=== PATIENT | male | born 1945 | race Caucasian/White ===

== ENCOUNTER → 2019-06-03 | Outpatient (CLI) | payer MEDICARE ==
[~2019-06-03] MED LIST: Atenolol; CHOL200040; CLOBETASOL PROPIONATE 0.05%; Dayquil; FLUOCINOLONE ACETONIDE; GLUC1CAP48; KRIL500C; MULT1CAP19; OMEG10007; Pradaxa; UREA 40%
== END | disposition home or self-care (01) ==
LOC: CVU 12:20
PROVIDERS: ATTEND Internal Medicine Cardiovascular Disease
DX: I08.3 Combined rheumatic disorders of mitral, aortic and tricuspid valves (principal)
CPT/HCPCS: 93306

== ENCOUNTER → 2020-12-14 | Outpatient (CLI) | payer MEDICARE | END | disposition home or self-care (01) | LOC: CFH 12:10 | PROVIDERS: ATTEND Internal Medicine Cardiovascular Disease | DX: I08.8 Other rheumatic multiple valve diseases (principal); I11.9 Hypertensive heart disease without heart failure; I71.9 Aortic aneurysm of unspecified site, without rupture | CPT/HCPCS: 93306 ==